=== PATIENT | female | born 1955 | race Caucasian/White ===

== ENCOUNTER → 2024-10-17 | Day surgery (SDC) | payer MEDICAID ==
[~2024-10-17] VITALS: Ht 137.2 cm; Wt 61.2 kg
[~2024-10-17] MED LIST: ACETYLCHOLINE CHLORIDE INTRAOCULAR SOLUTION 1:100 ELECTROLYTE DILUENT IO ONE; AMLO10TA80 PO; ASPI-1497 PO; BALANCED SALT IRRIG SOLN COMB2 500ML OP NR; CHOL200059 PO; CYCLOPENTOLATE HCL 1% OPHTH DROPS 2ML RIGHTEYE SCH; FENTANYL CITRATE/PF 50MCG/ML 2ML VIAL ONE; HYALURONATE SODIUM 10MG/ML 0.55ML SYRINGE IO ONE; HYDROMORPHONE HCL/PF 1MG/ML INJ IV PRN; INSNPH SUBCUT; LABETALOL 5MG/ML 4ML INJ IV PRN; LISI-649 PO; MEPERIDINE HCL/PF 25MG/ML CPJ IV PRN; METF-416 PO; MIDAZOLAM HCL 2 MG/2 ML VIAL ONE; ONDANSETRON HCL 4MG/2ML INJ IV PRN; PHENYLEPHRINE HCL 10% OPHTH DROPS 5ML RIGHTEYE SCH; SIMV-46 PO; SITA100T11 PO; SODIUM CHLORIDE 0.9% 1,000 ML IV SCH; TROPICAMIDE 1% OPHTH DROPS 15ML RIGHTEYE SCH; TRYPAN BLUE 0.5 ML DISP.SYRIN IO ONE
== END | disposition home or self-care (01) ==
LOC: OR 06:14
PROVIDERS: ATTEND Ophthalmology
DX: E11.36 Type 2 diabetes mellitus with diabetic cataract (principal); H25.21 Age-related cataract, morgagnian type, right eye; I10 Essential (primary) hypertension; Z79.84 Long term (current) use of oral hypoglycemic drugs; Z79.899 Other long term (current) drug therapy; Z79.82 Long term (current) use of aspirin; Z98.890 Other specified postprocedural states
CPT/HCPCS: 82962; 66982; Q9957; J3010; J2003; J2250; J3490; V2632